=== PATIENT | male | born 1995 | race Two or more races ===

== ENCOUNTER 2020-02-28 23:33 | Emergency (ER) | payer MEDICAID ==
[~2020-02-28] VITALS: Ht 177.8 cm; Wt 99.8 kg
[~2020-02-28 23:33] MED LIST: LIBRIUM25 MG ORAL
[2020-02-29] VITALS: BP 118/65
--- NOTE | 2020-02-29 | NUR ---
ED Nurse Note: Patient left without being seen, patient ambulated out of waiting room with a steady gait. ID band removed
--- NOTE | 2020-02-29 00:05 | Emergency Room Report ---
History of Present Illness General Chief Complaint: General Complaint Source: Patient Present Illness HPI Is a 24-year-old male with unknown past medical history. He presents with chief complaint of nosebleed. He checked then saying this been ongoing for a month. He also was agitated and I saw him briefly in the waiting room. He said that he is under a lot of stress. After he was triaged, he got up and left the waiting room. I did not see this patient to do a full exam. 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 COVID-19 Screening: Negative COVID-19 COVID-19 Testing Source: [facility] Patient History Past Medical History: see triage record, old chart reviewed Past Surgical History: other Pertinent Family History: none Social History: Denies: smoking Immunizations: other Reviewed Nursing Documentation: PMH: Agreed; PSxH: Agreed Nursing Documentation-PMH Past Medical History: No History, Except For Hx Hypertension: Yes Hx Seizures: Yes Review of Systems Eye: Denies: eye pain, blurred vision ENT: Denies: ear pain, nose congestion, throat swelling Respiratory: Denies: cough, shortness of breath Cardiovascular: Denies: chest pain, palpitations Gastrointestinal: Denies: abdominal pain, diarrhea, nausea, vomiting Musculoskeletal: Denies: back pain, joint pain Skin: Denies: rash Neurological: Denies: headache, numbness Endocrine: Denies: increased thirst, increased urine Hematologic/Lymphatic: Denies: easy bruising All Other Systems: negative except mentioned in HPI Physical Exam Vital Signs Date Time Temp Pulse Resp B/P (MAP) Pulse Ox O2 Delivery O2 Flow Rate FiO2 02/28/20 23:36 99.0 117 18 118/65 (82) 92 Room Air Medical Decision Making Diagnostic Impression: Primary Impression: Nosebleed Last Vital Signs Date Time Temp Pulse Resp B/P (MAP) Pulse Ox O2 Delivery O2 Flow Rate FiO2 02/28/20 23:36 99.0 117 18 118/65 (82) 92 Room Air Status: unchanged Disposition: LEFT W/OUT BEING SEEN Condition: Stable Referrals: [facility],REFERRING (PCP) Shaheen Estrada MD Feb 29, 2020 00:05
== END 2020-02-29 | disposition left against medical advice (07) ==
LOC: EMR 23:48
DX: R04.0 Epistaxis (principal); I10 Essential (primary) hypertension; G40.909 Epilepsy, unspecified, not intractable, without status epilepticus; Z53.21 Procedure and treatment not carried out due to patient leaving prior to being seen by health care provider